=== PATIENT | female | born 1985 | race African-American/Black ===

== ENCOUNTER 2024-03-21 12:34 | Outpatient (CLI) | payer BC, SELFPAY ==
--- NOTE | ~2024-03-21 | US_ITS ---
Pelvic ultrasound. Clinical History: Fibroids Technique: Realtime transabdominal scanning of the pelvis was performed. Color flow Doppler and Doppl er spectral analysis were performed. Findings: The uterus is anteverted, and measures approximately 22.5 x 12.0 x 19.8 cm. Large intralumi nal peripherally calcified fibroid measures 9.3 x 8.7 x 6.7 cm. Exophytic fundal fibroid measures 8.4 x 6.6 x 2.6 cm. Additional fibroids are likely present. Endometrial stripe measures 12 mm in thickness. Neither ovary seen. No other adnexal mass seen. There is no evidence of free fluid in the cul de sac. Impression: Multiple large uterine fibroids with enlarged uterus overall, as detailed above. Reviewed, dictated and finalized at location . Impression: Multiple large uterine fibroids with enlarged uterus overall, as detailed above .
== END 2024-03-21 12:35 ==
LOC: MICIMG 12:35
PROVIDERS: PCP Nurse Practitioner; Visit Provider Nurse Practitioner
DX: D25.9 Leiomyoma of uterus, unspecified (principal); N85.2 Hypertrophy of uterus
CPT/HCPCS: 76856

== ENCOUNTER 2024-05-05 10:34 | Outpatient (CLI) | payer BC, SELFPAY ==
--- NOTE | ~2024-05-05 | MR_ITS ---
EXAMINATION: MR pelvis wo/w con DATE: 05/05/2024 11:48 INDICATION: Uterine fibrosis TECHNIQUE: Magnetic resonance imaging (MRI) of the pelvis was performed without and with 19 mL Multih ance intravenous contrast. Full-field sequences of the pelvis included axial and coronal T2-weighted SS FSE, coronal 2D FIESTA, axial T1-weighted FSPGR, axial dual-echo T1-weighted FSPGR and axial T1 we ighted LAVA. Small field of view sequences included axial, sagittal and coronal T2-weighted FSE cent ered on the uterus and adnexa. Postcontrast sequences included a time course axial T1-weighted LAVA with full-field of view of the pelvis. COMPARISON: CT dated 07/02/2011 and ultrasound dated 03/21/2024 FINDINGS: Markedly enlarged fibroid uterus occupying a large portion of the pelvis and lower abdomen and contai fiona multiple heterogeneously enhancing uterine fibroids. The largest is a pedunculated fibroid arisi ng from a small pedicle and which extends into the left abdomen which measures 15.7 x 12.3 x 12.7 cm. There is thin low signal surrounding a 9.1 x 7.1 x 8.8 cm T1 hyperintense, T2 hypointense nonenhanci ng intrauterine lesion. The increased T1 and low T2 signal suggests hemorrhage or proteinaceous fluid likely within a degenerated uterine fibroid with likely rim calcification conifer the peripheral low signal intensity rim in the echogenic shadowing rim on the prior ultrasound. Uterine fibroids distor t the endometrial complex which measures up to 2 mm in maximal thickness. Partially decompressed blad marsha is normal. There is a small amount of free fluid in the pelvis. There are small bilateral ovarian cysts/follicles measuring up to 1.4 cm on both the left and right. Visualized portions of bowels inc luding the appendix are normal. No pathologically enlarged pelvic, inguinal or lower abdominal lympha denopathy. Bones are unremarkable. Normal marrow signal throughout. IMPRESSION: 1. Markedly enlarged fibroid uterus which occupies a significant portion of the pelvis and lower abdo men with largest fibroid measuring up to 15.7 cm in maximal diameter and including a 9.1 cm nonenhanc ing likely centrally hemorrhagic/proteinaceous fluid filled and rim calcified degenerated uterine fib roid. Reviewed, dictated and finalized at location A. IMPRESSION: 1. Markedly enlarged fibroid uterus which occupies a significant portion of the pelvis and lower abdomen with largest fibroid measuring up to 15.7 cm in maxim al diameter and including a 9.1 cm nonenhancing likely centrally hemorrhagic/pr oteinaceous fluid filled and rim calcified degenerated uterine fibroid.
== END 2024-05-05 10:35 ==
LOC: MICIMG 10:35
PROVIDERS: PCP Nurse Practitioner
DX: D25.9 Leiomyoma of uterus, unspecified (principal)
CPT/HCPCS: 72197; A9577